=== PATIENT | male | born 1965 | race Caucasian/White ===

== ENCOUNTER 2022-03-18 17:55 | Inpatient (IN) ==
[2022-03-18] MEDS ORDERED: Propofol 10 mg/ml 100 ML BTL 1,000 MG/100 ML BTL ONE (21:47)
[2022-03-18] MEDS: Propofol 10 mg/ml 100 ML BTL 1,000 MG/100 ML BTL IV SCH ×2 (21:50→23:08)
[2022-03-18] MEDS ORDERED: Enoxaparin 40 MG/0.4 ML SYR SUBCUT SCH (22:00)
[2022-03-18] MEDS ORDERED: fentaNYL 100 mcg/2 ml 50 MCG/ML VIAL ONE (22:40)
[2022-03-18] MEDS ORDERED: Piperacillin/Tazobac ADVAN 3.375 GM in NS 0.9% 100 ml BAG 100 ML IV ONE (23:04)
[2022-03-18] MEDS ORDERED: Albuterol/Ipratropium NEB.SOL (2.5/0.5 MG) 3 ML NEB.SOLN INH PRN (23:04)
[2022-03-18] MEDS: Dexmedetomidine 1,000 MCG in NS 0.9% 250 ml 240 ML IV SCH (23:08)
[2022-03-18] MEDS: Pantoprazole VIAL 40 MG VIAL IV SCH (23:12)
[2022-03-18] MEDS: Chlorhexidine MOUTHWASH 0.12% 15 ML UDC SWISH SPIT SCH (23:12)
[2022-03-18] MEDS ORDERED: Lactated Ringers 1000 ml BAG 1,000 ML IV ONE (23:21)
[2022-03-18 23:28] LABS: ABS Basophils 0.1 10^3/ul (0-0.2); ABS Lymphocytes 0.8 10^3/ul (1.0-4.8); ABS Neutrophils 13.3 10^3/ul (1.5-7.7); Eosinophil % 0.2 %; Hematocrit 37 % (42-52); Hemoglobin 11.7 g/dL (14.0-18.0); Lymphocyte % 5.5 %; Mean Corpuscular HGB Conc 32 g/dL (31-36); Mean Corpuscular Hemoglobin 29 pg (27-31); Mean Corpuscular Volume 92 fL (80-94); Mean Platelet Volume 8.2 fL (7.4-10.4); Platelet Count 298 10^3/uL (150-450); Red Cell Distribution Width 16 % (10-15); White Blood Count 15.2 10^3/uL (3.5-10.8)
[2022-03-18 23:30] LABS: Urine Appearance Clear; Urine Bilirubin Negative (Negative); Urine Blood Negative (Negative); Urine Color Yellow; Urine Glucose Negative (Negative); Urine Ketones Negative (Negative); Urine Nitrite Negative (Negative); Urine Protein Negative (Negative); Urine Specific Gravity 1.026 (1.002-1.030); Urine Urobilinogen Negative (Negative)
[2022-03-18] MEDS ORDERED: Zosyn per Pharmacy NOTE FOLLOW UP SCH (23:45)
[2022-03-19] MEDS: DOXYcycline 100 MG in NS 0.9% 250 ml 250 ML IVPB SCH ×3 (00:03→23:45)
[2022-03-19] MEDS: methylPREDNISolone SOD SUCC 40 mg/ml 1 ml VIAL IV SCH ×4 (00:11→23:44)
[2022-03-19 00:24] LABS: Albumin 3.8 g/dL (3.2-5.2); Albumin/Globulin Ratio 1.6 (1-3); Calcium 8.1 mg/dL (8.6-10.3); Globulin 2.4 g/dL (2-4); Magnesium 2.7 mg/dL (1.9-2.7); Total Bilirubin 0.3 mg/dL (0.2-1.0); Total Protein 6.2 g/dL (6.4-8.9); eGFR CKD-EPI 81.3 (>60)
[2022-03-19 00:31] LABS: Potassium 5.2 mmol/L (3.5-5.0)
[2022-03-19 00:38] LABS: TSH Ultra Thyroid Stim Horm 0.12 mcIU/mL (0.34-5.60)
[2022-03-19 00:43] LABS: INR 0.94 (0.88-1.18)
[2022-03-19] MEDS: Propofol 10 mg/ml 100 ML BTL 1,000 MG/100 ML BTL IV SCH ×9 (00:46→23:19)
[2022-03-19 01:05] LABS: High Sensitivity Troponin 1 Hr 10 pg/mL (<20)
[2022-03-19] MEDS: Chlorhexidine MOUTHWASH 0.12% 15 ML UDC SWISH SPIT SCH ×6 (01:55→21:26)
[2022-03-19] MEDS: ZOSYN 3.375 GM Q8H per EXTENDED INFUSION IV SCH ×3 (04:26→20:39)
[2022-03-19 04:30] LABS: ABS Lymphocytes 0.9 10^3/ul (1.0-4.8); ABS Monocytes 0.6 10^3/ul (0-0.8); ABS Neutrophils 12.1 10^3/ul (1.5-7.7); Hematocrit 36 % (42-52); Hemoglobin 11.7 g/dL (14.0-18.0); Lymphocyte % 6.4 %; Mean Corpuscular HGB Conc 32 g/dL (31-36); Mean Corpuscular Hemoglobin 30 pg (27-31); Mean Corpuscular Volume 92 fL (80-94); Mean Platelet Volume 8.2 fL (7.4-10.4); Nucleated Red Blood Cells % 0.1; Platelet Count 305 10^3/uL (150-450); Red Blood Count 3.96 10^6 /uL (4.18-5.48); Red Cell Distribution Width 16 % (10-15); White Blood Count 13.6 10^3/uL (3.5-10.8)
[2022-03-19] MEDS: fentaNYL 100 mcg/2 ml 50 MCG/ML VIAL IV SLOW PU PRN ×5 (05:00→18:09)
[2022-03-19 05:30] LABS: Magnesium 2.6 mg/dL (1.9-2.7); Phosphorus 3.1 mg/dL (2.5-5.0); eGFR CKD-EPI 86.2 (>60)
[2022-03-19 05:32] LABS: Potassium 5.4 mmol/L (3.5-5.0)
[2022-03-19] MEDS ORDERED: Patiromer POWDER 8.4 GM PAK PO ONE (06:54)
[2022-03-19] MEDS ORDERED: Dexmedetomidine 200 mcg/2 ml 2 ml VIAL (200 mcg) ONE (07:34)
[2022-03-19] MEDS: Enoxaparin 40 MG/0.4 ML SYR SUBCUT SCH ×2 (08:48→20:34)
[2022-03-19] MEDS ORDERED: Furosemide 40 mg/4 ml IV VIAL IV SLOW PU ONE (08:54)
[2022-03-19] MEDS ORDERED: Valproic Acid IV 100 MG/ML 5 ML VIAL (500 MG) IVPB SCH ×2 (09:00→21:00)
[2022-03-19] MEDS ORDERED: Valproic Acid IV 1,000 MG in NS 0.9% 100 ml BAG 100 ML IVPB SCH (09:00)
[2022-03-19] MEDS: Albuterol/Ipratropium NEB.SOL (2.5/0.5 MG) 3 ML NEB.SOLN INH SCH ×5 (09:22→23:34)
[2022-03-19] MEDS: Valproic Acid IV 375 MG in NS 0.9% 100 ml BAG 100 ML IVPB SCH ×3 (10:03→20:34)
[2022-03-19] MEDS: Dexmedetomidine 1,000 MCG in NS 0.9% 250 ml 240 ML IV SCH ×2 (11:13→18:22)
[2022-03-19 12:19] LABS: PCO2 Arterial 42 mmHg (35-45); PO2 Arterial 68 mmHg (80-100)
[2022-03-19] MEDS: hydrALAZINE 20 mg/ml 1 ML Vial IV IV SLOW PU PRN ×2 (15:06→20:59)
[2022-03-19] MEDS ORDERED: Valproic Acid IV 500 MG in NS 0.9% 100 ML IVPB SCH (21:00)
[2022-03-19] MEDS: Pantoprazole VIAL 40 MG VIAL IV SCH (21:26)
[2022-03-19] MEDS ORDERED: Midazolam 2 mg/2 ml VIAL 1 mg/ml 2 ml VIAL (2 mg) ONE (21:31)
[2022-03-19] MEDS ORDERED: Midazolam 2 mg/2 ml VIAL 1 mg/ml 2 ml VIAL (2 mg) IV SLOW PU ONE (21:42)
[2022-03-20] MEDS: Chlorhexidine MOUTHWASH 0.12% 15 ML UDC SWISH SPIT SCH ×2 (01:38→05:25)
[2022-03-20] MEDS: dilTIAZem 30 MG TAB FEED TUBE SCH ×4 (01:53→19:07)
[2022-03-20] MEDS: Propofol 10 mg/ml 100 ML BTL 1,000 MG/100 ML BTL IV SCH ×3 (02:55→08:23)
[2022-03-20] MEDS ORDERED: Albuterol/Ipratropium NEB.SOL (2.5/0.5 MG) 3 ML NEB.SOLN INH SCH ×2 (03:00→13:00)
[2022-03-20] MEDS ORDERED: fentaNYL 100 mcg/2 ml 50 MCG/ML VIAL IV SLOW PU ONE (03:06)
[2022-03-20] MEDS: Valproic Acid IV 375 MG in NS 0.9% 100 ml BAG 100 ML IVPB SCH ×3 (03:08→17:11)
[2022-03-20] MEDS: Albuterol/Ipratropium NEB.SOL (2.5/0.5 MG) 3 ML NEB.SOLN INH SCH ×2 (03:26→07:43)
[2022-03-20] MEDS: ZOSYN 3.375 GM Q8H per EXTENDED INFUSION IV SCH ×3 (04:03→20:51)
[2022-03-20 04:14] LABS: ABS Lymphocytes 0.9 10^3/ul (1.0-4.8); ABS Monocytes 0.4 10^3/ul (0-0.8); ABS Neutrophils 10.7 10^3/ul (1.5-7.7); Eosinophil % 0.1 %; Hematocrit 36 % (42-52); Hemoglobin 12.3 g/dL (14.0-18.0); Lymphocyte % 7.4 %; Mean Corpuscular HGB Conc 34 g/dL (31-36); Mean Corpuscular Hemoglobin 31 pg (27-31); Mean Corpuscular Volume 91 fL (80-94); Mean Platelet Volume 8.3 fL (7.4-10.4); Platelet Count 315 10^3/uL (150-450); Red Blood Count 3.98 10^6 /uL (4.18-5.48); Red Cell Distribution Width 15 % (10-15)
[2022-03-20] MEDS: hydrALAZINE 20 mg/ml 1 ML Vial IV IV SLOW PU PRN ×2 (04:16→17:18)
[2022-03-20] MEDS: Dexmedetomidine 1,000 MCG in NS 0.9% 250 ml 240 ML IV SCH ×4 (04:18→20:23)
[2022-03-20 04:42] LABS: Magnesium 2.3 mg/dL (1.9-2.7); Phosphorus 3.3 mg/dL (2.5-5.0); Potassium 4.5 mmol/L (3.5-5.0); eGFR CKD-EPI 83.2 (>60)
[2022-03-20] MEDS ORDERED: methylPREDNISolone SOD SUCC 40 mg/ml 1 ml VIAL IV SCH ×2 (05:00→20:00)
[2022-03-20] MEDS ORDERED: Furosemide 40 mg/4 ml IV VIAL IV SLOW PU ONE (07:43)
[2022-03-20] MEDS: fentaNYL 100 mcg/2 ml 50 MCG/ML VIAL IV SLOW PU PRN (07:57)
[2022-03-20] MEDS: methylPREDNISolone SOD SUCC 40 mg/ml 1 ml VIAL IV SCH (08:21)
[2022-03-20] MEDS: Enoxaparin 40 MG/0.4 ML SYR SUBCUT SCH ×2 (08:22→20:56)
[2022-03-20] MEDS ORDERED: Lorazepam PYXIS KEY ONE ×2 (10:08→14:47)
[2022-03-20] MEDS ORDERED: LORazepam 2 mg VIAL 1 ml ONE ×2 (10:08→14:47)
[2022-03-20] MEDS ORDERED: Succinylcholine 200 mg VIAL 20 mg/ml 10 ml VIAL (200 mg) ONE (10:13)
[2022-03-20] MEDS ORDERED: Haloperidol 5 mg/ml SDV IV/IM 5 MG/ML AMP ONE ×2 (10:20→10:26)
[2022-03-20] MEDS: Haloperidol 5 mg/ml SDV IV/IM 5 MG/ML AMP IV SLOW PU PRN ×5 (10:21→22:45)
[2022-03-20] MEDS ORDERED: Ziprasidone IM 20 mg VIAL 1 ml VIAL ONE (10:26)
[2022-03-20] MEDS ORDERED: PHENobarbital IV 500 MG in NS 0.9% 100 ml BAG 100 ML IVPB ONE (10:28)
[2022-03-20] MEDS ORDERED: NS 0.9% IVPB ONE ×2 (10:46→15:00)
[2022-03-20] MEDS ORDERED: PHENOBARBITAL IVPB ONE ×2 (10:46→15:00)
[2022-03-20] MEDS ORDERED: Ziprasidone IM 20 mg VIAL 1 ml VIAL IM ONE (12:44)
[2022-03-20] MEDS ORDERED: Magnesium Sulfate 2 gm BAG 2 GM/50 ML BAG IVPB ONE ×2 (12:44→23:24)
[2022-03-20] MEDS: DOXYcycline 100 MG in NS 0.9% 250 ml 250 ML IVPB SCH ×2 (13:27→23:15)
[2022-03-20] MEDS ORDERED: Thiamine 100 MG/ML 2 ml VIAL 250 MG in NS 0.9% 100 ml BAG 100 ML IV SCH (14:00)
[2022-03-20] MEDS ORDERED: Haloperidol 5 mg/ml SDV IV/IM 5 MG/ML AMP IV SLOW PU ONE (14:36)
[2022-03-20] MEDS ORDERED: PHENobarbital IV 65 MG/ML 1 ml VIAL IVPB ONE (15:00)
[2022-03-20] MEDS ORDERED: Lorazepam PYXIS KEY PRN ×2 (15:06→23:24)
[2022-03-20] MEDS ORDERED: LORazepam 2 mg VIAL 1 ml IV PUSH ONE ×2 (15:06→23:24)
[2022-03-20 15:11] LABS: PCO2 Arterial 41 mmHg (35-45); PO2 Arterial 84 mmHg (80-100)
[2022-03-20] MEDS ORDERED: hydrALAZINE 20 mg/ml 1 ML Vial IV IV SLOW PU ONE (17:55)
[2022-03-20] MEDS ORDERED: Folic Acid IV 1 MG in NS 0.9% 50 ML 50 ML IV ONE (18:00)
[2022-03-20] MEDS ORDERED: NS 0.9% IV ONE (18:30)
[2022-03-20] MEDS ORDERED: PHENOBARBITAL IV ONE (18:30)
[2022-03-20 19:29] LABS: T4, Total 6.15 mcg/dL (6.09-12.23)
[2022-03-20 19:31] LABS: TSH Ultra Thyroid Stim Horm 0.77 mcIU/mL (0.34-5.60)
[2022-03-20 19:33] LABS: Free T3 2.4 pg/mL (2.5-3.9); Free T4 0.66 ng/dL (0.61-1.12)
[2022-03-20] MEDS: Thiamine 100 MG/ML 2 ml VIAL 500 MG in NS 0.9% 250 ml 250 ML IV SCH (21:26)
[2022-03-20 21:46] LABS: Albumin 3.8 g/dL (3.2-5.2); Albumin/Globulin Ratio 1.7 (1-3); Calcium 7.9 mg/dL (8.6-10.3); Globulin 2.2 g/dL (2-4); Potassium 4.7 mmol/L (3.5-5.0); Total Bilirubin 0.3 mg/dL (0.2-1.0); eGFR CKD-EPI 92.8 (>60)
[2022-03-20] MEDS: Albuterol 2.5mg/3 ml (0.083%) NEB.SOLN INH PRN ×2 (22:53→23:17)
[2022-03-20] MEDS ORDERED: Albuterol/Ipratropium NEB.SOL (2.5/0.5 MG) 3 ML NEB.SOLN INH ONE (23:07)
[2022-03-20 23:55] LABS: PCO2 Arterial 47 mmHg (35-45); PO2 Arterial 80 mmHg (80-100)
[2022-03-21] MEDS: Albuterol/Ipratropium NEB.SOL (2.5/0.5 MG) 3 ML NEB.SOLN INH SCH ×7 (00:26→22:49)
[2022-03-21] MEDS: Valproic Acid IV 500 MG in NS 0.9% 100 ml BAG 100 ML IVPB SCH ×4 (00:58→16:47)
[2022-03-21] MEDS: hydrALAZINE 20 mg/ml 1 ML Vial IV IV SLOW PU PRN ×3 (01:06→18:22)
[2022-03-21] MEDS: Dexmedetomidine 1,000 MCG in NS 0.9% 250 ml 240 ML IV SCH ×6 (01:07→22:43)
[2022-03-21] MEDS ORDERED: LORazepam 2 mg VIAL 1 ml ONE ×4 (03:38→20:22)
[2022-03-21] MEDS ORDERED: LORazepam 2 mg VIAL 1 ml IV PUSH ONE ×5 (03:45→21:09)
[2022-03-21] MEDS ORDERED: Lorazepam PYXIS KEY PRN ×6 (03:45→21:09)
[2022-03-21] MEDS: ZOSYN 3.375 GM Q8H per EXTENDED INFUSION IV SCH ×3 (04:13→20:01)
[2022-03-21] MEDS: Thiamine 100 MG/ML 2 ml VIAL 500 MG in NS 0.9% 250 ml 250 ML IV SCH ×2 (04:58→12:39)
[2022-03-21] MEDS: methylPREDNISolone SOD SUCC 40 mg/ml 1 ml VIAL IV SCH ×3 (05:01→20:02)
[2022-03-21 05:16] LABS: Hematocrit 35 % (42-52); Hemoglobin 11.6 g/dL (14.0-18.0); Mean Corpuscular HGB Conc 33 g/dL (31-36); Mean Corpuscular Hemoglobin 30 pg (27-31); Mean Corpuscular Volume 91 fL (80-94); Platelet Count 310 10^3/uL (150-450); Red Blood Count 3.83 10^6 /uL (4.18-5.48); Red Cell Distribution Width 16 % (10-15); White Blood Count 10.9 10^3/uL (3.5-10.8)
[2022-03-21 05:39] LABS: ABS Basophils 0.1 10^3/ul (0-0.2); ABS Lymphocytes 0.9 10^3/ul (1.0-4.8); ABS Monocytes 0.6 10^3/ul (0-0.8); ABS Neutrophils 9.3 10^3/ul (1.5-7.7); Lymphocyte % 8.3 %
[2022-03-21 05:55] LABS: Calcium 7.7 mg/dL (8.6-10.3); Magnesium 3.1 mg/dL (1.9-2.7); Phosphorus 4.1 mg/dL (2.5-5.0); Potassium 4.9 mmol/L (3.5-5.0); eGFR CKD-EPI 88.3 (>60)
[2022-03-21 06:15] LABS: Thyroid Peroxidase Antibodies 0.34 IU/mL (<9)
[2022-03-21] MEDS: Enoxaparin 40 MG/0.4 ML SYR SUBCUT SCH ×2 (08:05→20:13)
[2022-03-21] MEDS ORDERED: PHENOBARBITAL IVPB ONE ×2 (09:00)
[2022-03-21] MEDS ORDERED: NS 0.9% IVPB ONE ×2 (09:00)
[2022-03-21 10:01] LABS: PCO2 Arterial 41 mmHg (35-45); PO2 Arterial 89 mmHg (80-100)
[2022-03-21] MEDS: DOXYcycline 100 MG in NS 0.9% 250 ml 250 ML IVPB SCH ×2 (10:27→23:26)
[2022-03-21] MEDS ORDERED: Cyanocobalamin INJ 1,000 MCG/ML VIAL 1 ML VIAL IM ONE (11:01)
[2022-03-21] MEDS: Haloperidol 5 mg/ml SDV IV/IM 5 MG/ML AMP IV SLOW PU PRN ×2 (11:40→23:26)
[2022-03-21] MEDS ORDERED: Lorazepam PYXIS KEY ONE ×2 (11:44→20:21)
[2022-03-21] MEDS: Pantoprazole VIAL 40 MG VIAL IV SCH (12:31)
[2022-03-21] MEDS ORDERED: LORazepam 2 mg VIAL 1 ml IV PUSH PRN (20:19)
[2022-03-22] MEDS: Valproic Acid IV 500 MG in NS 0.9% 100 ml BAG 100 ML IVPB SCH ×5 (00:17→23:37)
[2022-03-22] MEDS ORDERED: Furosemide 40 mg/4 ml IV VIAL IV SLOW PU ONE (02:03)
[2022-03-22] MEDS: Albuterol/Ipratropium NEB.SOL (2.5/0.5 MG) 3 ML NEB.SOLN INH SCH ×6 (02:11→23:28)
[2022-03-22] MEDS ORDERED: Furosemide 40 mg/4 ml IV VIAL ONE (02:20)
[2022-03-22] MEDS ORDERED: Morphine 4 MG/ML VIAL (1 ml) ONE (02:21)
[2022-03-22 02:57] LABS: PCO2 Arterial 44 mmHg (35-45); PO2 Arterial 105 mmHg (80-100)
[2022-03-22] MEDS: Dexmedetomidine 1,000 MCG in NS 0.9% 250 ml 240 ML IV SCH ×4 (03:21→19:31)
[2022-03-22 03:25] LABS: Hematocrit 36 % (42-52); Hemoglobin 11.5 g/dL (14.0-18.0); Mean Corpuscular HGB Conc 32 g/dL (31-36); Mean Corpuscular Hemoglobin 29 pg (27-31); Mean Corpuscular Volume 92 fL (80-94); Mean Platelet Volume 8.5 fL (7.4-10.4); Platelet Count 304 10^3/uL (150-450); Red Blood Count 3.91 10^6 /uL (4.18-5.48); Red Cell Distribution Width 16 % (10-15); White Blood Count 9.5 10^3/uL (3.5-10.8)
[2022-03-22] MEDS: ZOSYN 3.375 GM Q8H per EXTENDED INFUSION IV SCH ×3 (04:15→20:20)
[2022-03-22 04:31] LABS: Blood Urea Nitrogen 37 mg/dL (6-24); CO2 Carbon Dioxide 24 mmol/L (22-32); Calcium 7.5 mg/dL (8.6-10.3); Chloride 111 mmol/L (101-111); Glucose 106 mg/dL (70-100); eGFR CKD-EPI 86.2 (>60)
[2022-03-22 04:40] LABS: Anion Gap 11 mmol/L (2-11); Sodium 146 mmol/L (135-145)
[2022-03-22] MEDS: methylPREDNISolone SOD SUCC 40 mg/ml 1 ml VIAL IV SCH ×3 (05:54→20:21)
[2022-03-22] MEDS: Thiamine 100 MG/ML 2 ml VIAL 100 MG in NS 0.9% 50 ML 50 ML IV SCH (08:33)
[2022-03-22] MEDS: Enoxaparin 40 MG/0.4 ML SYR SUBCUT SCH ×2 (08:34→20:21)
[2022-03-22] MEDS: hydrALAZINE 20 mg/ml 1 ML Vial IV IV SLOW PU PRN ×3 (08:36→23:36)
[2022-03-22] MEDS ORDERED: PHENobarbital IV 65 MG/ML 1 ml VIAL IV SCH (09:00)
[2022-03-22 09:55] LABS: Magnesium 2.6 mg/dL (1.9-2.7); Potassium 4.2 mmol/L (3.5-5.0)
[2022-03-22] MEDS ORDERED: Lorazepam PYXIS KEY PRN (11:16)
[2022-03-22] MEDS ORDERED: LORazepam 2 mg VIAL 1 ml IV PUSH ONE (11:16)
[2022-03-22] MEDS: DOXYcycline 100 MG in NS 0.9% 250 ml 250 ML IVPB SCH ×2 (11:41→23:37)
[2022-03-22] MEDS: Pantoprazole VIAL 40 MG VIAL IV SCH (13:41)
[2022-03-22] MEDS: Acetaminophen IV 1 GM/100ML 1,000 MG/100 ML BAG IV PRN (15:42)
[2022-03-22] MEDS ORDERED: PHENobarbital IV 65 MG/ML 1 ml VIAL IV ONE (21:00)
[2022-03-22] MEDS ORDERED: PHENYLEPHRINE DRIP IVPREMIX 50 MG/250 ML BAG IV ONE (21:31)
[2022-03-23] MEDS: Dexmedetomidine 1,000 MCG in NS 0.9% 250 ml 240 ML IV SCH ×3 (00:16→09:16)
[2022-03-23] MEDS: ZOSYN 3.375 GM Q8H per EXTENDED INFUSION IV SCH ×3 (03:30→20:04)
[2022-03-23 04:37] LABS: Hematocrit 33 % (42-52); Hemoglobin 10.8 g/dL (14.0-18.0); Mean Corpuscular HGB Conc 33 g/dL (31-36); Mean Corpuscular Hemoglobin 30 pg (27-31); Mean Corpuscular Volume 92 fL (80-94); Mean Platelet Volume 8.4 fL (7.4-10.4); Platelet Count 270 10^3/uL (150-450); Red Blood Count 3.62 10^6 /uL (4.18-5.48); Red Cell Distribution Width 16 % (10-15)
[2022-03-23] MEDS: Valproic Acid IV 500 MG in NS 0.9% 100 ml BAG 100 ML IVPB SCH ×2 (05:07→12:29)
[2022-03-23 05:16] LABS: ABS Basophils 0.1 10^3/ul (0-0.2); ABS Lymphocytes 2.1 10^3/ul (1.0-4.8); ABS Neutrophils 7.8 10^3/ul (1.5-7.7); Lymphocyte % 19.5 %; Nucleated Red Blood Cells % 0.1
[2022-03-23 05:27] LABS: Calcium 7.6 mg/dL (8.6-10.3); Magnesium 2.7 mg/dL (1.9-2.7); Phosphorus 3.5 mg/dL (2.5-5.0); Potassium 4.7 mmol/L (3.5-5.0); eGFR CKD-EPI 89.4 (>60)
[2022-03-23] MEDS: Albuterol/Ipratropium NEB.SOL (2.5/0.5 MG) 3 ML NEB.SOLN INH SCH ×3 (07:08→19:12)
[2022-03-23] MEDS ORDERED: methylPREDNISolone SOD SUCC 40 mg/ml 1 ml VIAL IV SCH (09:30)
[2022-03-23] MEDS: Enoxaparin 40 MG/0.4 ML SYR SUBCUT SCH ×2 (10:32→20:10)
[2022-03-23] MEDS: Thiamine 100 MG/ML 2 ml VIAL 100 MG in NS 0.9% 50 ML 50 ML IV SCH (10:32)
[2022-03-23] MEDS ORDERED: Midazolam 2 mg/2 ml VIAL 1 mg/ml 2 ml VIAL (2 mg) ONE (11:27)
[2022-03-23] MEDS ORDERED: Midazolam 2 mg/2 ml VIAL 1 mg/ml 2 ml VIAL (2 mg) IV SLOW PU ONE (11:41)
[2022-03-23] MEDS: methylPREDNISolone SOD SUCC 40 mg/ml 1 ml VIAL IV SCH (12:16)
[2022-03-23] MEDS: DOXYcycline 100 MG in NS 0.9% 250 ml 250 ML IVPB SCH ×2 (12:24→23:31)
[2022-03-23] MEDS: Pantoprazole VIAL 40 MG VIAL IV SCH (12:26)
[2022-03-23] MEDS ORDERED: PHENobarbital IV 65 MG/ML 1 ml VIAL IV SCH (13:00)
[2022-03-23] MEDS: Acetaminophen IV 1 GM/100ML 1,000 MG/100 ML BAG IV PRN (14:02)
[2022-03-23] MEDS ORDERED: Lactulose 30 ml UDC NG TUBE ONE (14:05)
[2022-03-23] MEDS: Lidocaine PATCH 5% PATCH TRANSDERM SCH (17:04)
[2022-03-23] MEDS: Valproic Acid LIQ 250 MG/5 ML UDC PO SCH (20:11)
[2022-03-24] MEDS: Albuterol/Ipratropium NEB.SOL (2.5/0.5 MG) 3 ML NEB.SOLN INH SCH ×4 (02:42→19:23)
[2022-03-24 04:26] LABS: Hematocrit 30 % (42-52); Hemoglobin 10.2 g/dL (14.0-18.0); Mean Corpuscular HGB Conc 33 g/dL (31-36); Mean Corpuscular Hemoglobin 30 pg (27-31); Mean Corpuscular Volume 91 fL (80-94); Platelet Count 205 10^3/uL (150-450); Red Blood Count 3.35 10^6 /uL (4.18-5.48); Red Cell Distribution Width 16 % (10-15); White Blood Count 10.4 10^3/uL (3.5-10.8)
[2022-03-24] MEDS: ZOSYN 3.375 GM Q8H per EXTENDED INFUSION IV SCH ×3 (04:26→20:11)
[2022-03-24 04:40] LABS: ABS Basophils 0.1 10^3/ul (0-0.2); ABS Lymphocytes 2.3 10^3/ul (1.0-4.8); Eosinophil % 0.4 %; Lymphocyte % 21.8 %; Nucleated Red Blood Cells % 0.1
[2022-03-24 05:04] LABS: Calcium 7.6 mg/dL (8.6-10.3); Magnesium 2.7 mg/dL (1.9-2.7); Potassium 4.1 mmol/L (3.5-5.0); eGFR CKD-EPI 80.4 (>60)
[2022-03-24] MEDS: Lidocaine PATCH 5% PATCH TRANSDERM SCH (08:06)
[2022-03-24] MEDS: Enoxaparin 40 MG/0.4 ML SYR SUBCUT SCH ×2 (08:06→20:45)
[2022-03-24] MEDS: Thiamine 100 MG/ML 2 ml VIAL 100 MG in NS 0.9% 50 ML 50 ML IV SCH (08:07)
[2022-03-24] MEDS: Valproic Acid LIQ 250 MG/5 ML UDC PO SCH (08:07)
[2022-03-24] MEDS ORDERED: Bumetanide IV 10 MG in Premix IV 0 ML IV SCH (09:00)
[2022-03-24] MEDS: Cyanocobalamin INJ 1,000 MCG/ML VIAL 1 ML VIAL IM SCH (10:37)
[2022-03-24] MEDS: DOXYcycline 100 MG in NS 0.9% 250 ml 250 ML IVPB SCH (12:04)
[2022-03-24] MEDS: Pantoprazole VIAL 40 MG VIAL IV SCH (12:10)
[2022-03-24] MEDS: Nystatin SUSPENSION 100,000 UNITS/ML UDC PO SCH ×3 (12:10→20:45)
[2022-03-24] MEDS: Acetaminophen IV 1 GM/100ML 1,000 MG/100 ML BAG IV PRN (18:42)
[2022-03-25] MEDS: Albuterol/Ipratropium NEB.SOL (2.5/0.5 MG) 3 ML NEB.SOLN INH SCH (00:07)
[2022-03-25] MEDS: DOXYcycline 100 MG in NS 0.9% 250 ml 250 ML IVPB SCH ×2 (00:32→11:44)
[2022-03-25] MEDS: ZOSYN 3.375 GM Q8H per EXTENDED INFUSION IV SCH ×3 (04:12→20:08)
[2022-03-25] MEDS: Thiamine 100 MG/ML 2 ml VIAL 100 MG in NS 0.9% 50 ML 50 ML IV SCH (10:14)
[2022-03-25] MEDS: Nystatin SUSPENSION 100,000 UNITS/ML UDC PO SCH ×3 (10:14→21:19)
[2022-03-25] MEDS: Pantoprazole VIAL 40 MG VIAL IV SCH (10:15)
[2022-03-25] MEDS: Cyanocobalamin INJ 1,000 MCG/ML VIAL 1 ML VIAL IM SCH (10:16)
[2022-03-25] MEDS: Enoxaparin 40 MG/0.4 ML SYR SUBCUT SCH ×2 (10:16→21:19)
[2022-03-25] MEDS: Lidocaine PATCH 5% PATCH TRANSDERM SCH (10:16)
[2022-03-25] MEDS ORDERED: Thiamine 100 MG/ML 2 ml VIAL 250 MG in NS 0.9% 100 ml BAG 100 ML IV SCH (14:00)
[2022-03-25] MEDS: Albuterol 2.5mg/3 ml (0.083%) NEB.SOLN INH PRN (20:57)
[2022-03-26] MEDS: ZOSYN 3.375 GM Q8H per EXTENDED INFUSION IV SCH (03:50)
[2022-03-26 06:34] LABS: Hematocrit 33 % (42-52); Hemoglobin 10.7 g/dL (14.0-18.0); Mean Corpuscular HGB Conc 32 g/dL (31-36); Mean Corpuscular Hemoglobin 31 pg (27-31); Mean Corpuscular Volume 95 fL (80-94); Mean Platelet Volume 8.8 fL (7.4-10.4); Platelet Count 207 10^3/uL (150-450); Red Cell Distribution Width 16 % (10-15); White Blood Count 9.3 10^3/uL (3.5-10.8)
[2022-03-26 06:56] LABS: Calcium 8.9 mg/dL (8.6-10.3); Magnesium 2.2 mg/dL (1.9-2.7); Phosphorus 5.3 mg/dL (2.5-5.0); Potassium 4.4 mmol/L (3.5-5.0); eGFR CKD-EPI 88.3 (>60)
[2022-03-26 07:07] LABS: ABS Eosinophils 0.1 10^3/ul (0-0.6); ABS Lymphocytes 2.7 10^3/ul (1.0-4.8); ABS Neutrophils 5.6 10^3/ul (1.5-7.7); Eosinophil % 0.7 %; Lymphocyte % 28.9 %; Nucleated Red Blood Cells % 0.1
[2022-03-26] MEDS: Cyanocobalamin INJ 1,000 MCG/ML VIAL 1 ML VIAL IM SCH (09:38)
[2022-03-26] MEDS: Nystatin SUSPENSION 100,000 UNITS/ML UDC PO SCH (09:39)
[2022-03-26] MEDS: Lidocaine PATCH 5% PATCH TRANSDERM SCH (09:39)
[2022-03-26] MEDS: Enoxaparin 40 MG/0.4 ML SYR SUBCUT SCH (09:41)
[2022-03-26 11:26] VITALS: BP 123/61
[2022-03-26] MEDS: Pantoprazole VIAL 40 MG VIAL IV SCH (11:42)
[2022-03-26] MEDS: Thiamine 100 MG/ML 2 ml VIAL 100 MG in NS 0.9% 50 ML 50 ML IV SCH (11:49)
== END 2022-03-26 14:25 | DRG 133 ==
LOC: ICU 21:44 → SUATTDRO 22:00 → SSU 03-24 13:32
PROVIDERS: ADMIT Internal Medicine; ATTEND Internal Medicine Hematology & Oncology

== ENCOUNTER 2022-03-26 12:09 | Inpatient (IN) ==
[2022-03-26] MEDS ORDERED: Magnesium Hydroxide LIQ 30 ML UDC PO PRN (12:13)
[2022-03-26] MEDS ORDERED: Al Hydrox/Mg Hydrox/Simet LIQ 30 ML UDC PO PRN (12:13)
[2022-03-26] MEDS ORDERED: Senna TAB 8.6 mg TAB PO PRN (12:13)
[2022-03-26] MEDS ORDERED: Albuterol 2.5mg/3 ml (0.083%) NEB.SOLN INH PRN (12:29)
[2022-03-26] MEDS ORDERED: Nystatin SUSPENSION 100,000 UNITS/ML UDC PO SCH (13:00)
[2022-03-26 19:56] LABS: PCO2 Arterial 46 mmHg (35-45); PO2 Arterial 67 mmHg (80-100)
[2022-03-26 20:14] LABS: Hematocrit 32 % (42-52); Hemoglobin 10.5 g/dL (14.0-18.0); Mean Corpuscular HGB Conc 33 g/dL (31-36); Mean Corpuscular Hemoglobin 31 pg (27-31); Mean Corpuscular Volume 94 fL (80-94); Mean Platelet Volume 9.3 fL (7.4-10.4); Platelet Count 231 10^3/uL (150-450); Red Blood Count 3.41 10^6 /uL (4.18-5.48); Red Cell Distribution Width 16 % (10-15); White Blood Count 10.8 10^3/uL (3.5-10.8)
[2022-03-26 20:44] LABS: ABS Lymphocytes 1.8 10^3/ul (1.0-4.8); ABS Monocytes 0.9 10^3/ul (0-0.8); Eosinophil % 0.1 %; Lymphocyte % 16.3 %
[2022-03-26 20:54] VITALS: BP 123/72
[2022-03-26 20:57] LABS: Albumin 3.6 g/dL (3.2-5.2); Albumin/Globulin Ratio 1.7 (1-3); Calcium 8.7 mg/dL (8.6-10.3); Globulin 2.1 g/dL (2-4); Magnesium 1.9 mg/dL (1.9-2.7); Phosphorus 4.1 mg/dL (2.5-5.0); Total Bilirubin 0.3 mg/dL (0.2-1.0); Total Protein 5.7 g/dL (6.4-8.9); eGFR CKD-EPI 91.6 (>60)
[2022-03-26] MEDS ORDERED: Enoxaparin 40 MG/0.4 ML SYR SUBCUT SCH (21:00)
[2022-03-26 21:02] LABS: Potassium 5.3 mmol/L (3.5-5.0)
[2022-03-27] MEDS ORDERED: Lidocaine PATCH 5% PATCH TRANSDERM SCH (09:00)
[2022-03-27] MEDS ORDERED: Cyanocobalamin INJ 1,000 MCG/ML VIAL 1 ML VIAL IM SCH (09:00)
[2022-03-29 18:54] LABS: Free Valproic Acid 13 mcg/mL (5 - 25); Total Valproic Acid 48 mcg/mL (50 - 125)
== END 2022-03-26 19:20 | disposition short-term general hospital (02) | DRG 133 ==
LOC: PMRU 15:11
PROVIDERS: ADMIT Physical Medicine & Rehabilitation; ATTEND Physical Medicine & Rehabilitation

== ENCOUNTER 2022-03-26 20:56 | Inpatient (IN) ==
[2022-03-26] MEDS ORDERED: Ondansetron 4 mg VIAL 2 MG/ML 2 ml VIAL IV PRN (20:59)
[2022-03-26] MEDS ORDERED: Aspirin EC 325 mg TAB.EC PO ONE (20:59)
[2022-03-26] MEDS ORDERED: Enoxaparin 40 MG/0.4 ML SYR SUBCUT SCH (21:00)
[2022-03-26] MEDS ORDERED: Valproic Acid IV 1,000 MG in NS 0.9% 100 ml BAG 100 ML IVPB ONE (21:10)
[2022-03-26] MEDS ORDERED: Albuterol 2.5mg/3 ml (0.083%) NEB.SOLN INH PRN (21:15)
[2022-03-26] MEDS ORDERED: SODIUM ZIRCONIUM CYCLOSILICATE 10 GM PACKET PO ONE (21:33)
[2022-03-26] MEDS: Enoxaparin 40 MG/0.4 ML SYR SUBCUT SCH (22:21)
[2022-03-26] MEDS: Valproic Acid IV 500 MG in NS 0.9% 100 ML IVPB SCH (22:45)
[2022-03-27] MEDS: Valproic Acid IV 500 MG in NS 0.9% 100 ML IVPB SCH ×3 (04:06→16:01)
[2022-03-27 07:28] LABS: Hematocrit 32 % (42-52); Hemoglobin 10.1 g/dL (14.0-18.0); Mean Corpuscular HGB Conc 32 g/dL (31-36); Mean Corpuscular Hemoglobin 30 pg (27-31); Mean Corpuscular Volume 94 fL (80-94); Mean Platelet Volume 9.1 fL (7.4-10.4); Platelet Count 209 10^3/uL (150-450); Red Blood Count 3.36 10^6 /uL (4.18-5.48); Red Cell Distribution Width 16 % (10-15); White Blood Count 9.2 10^3/uL (3.5-10.8)
[2022-03-27 07:53] LABS: Calcium 8.1 mg/dL (8.6-10.3); HDL Cholesterol 31.5 mg/dL; Magnesium 1.9 mg/dL (1.9-2.7); Potassium 4.5 mmol/L (3.5-5.0); eGFR CKD-EPI 102.6 (>60)
[2022-03-27] MEDS: CMCS: FLUTICAS/UMECLI/VILANT 100-62.5-25 MDI (NF) INH SCH (07:54)
[2022-03-27] MEDS ORDERED: Valproic Acid IV 1,000 MG in NS 0.9% 100 ml BAG 100 ML IVPB ONE (09:00)
[2022-03-27] MEDS ORDERED: Gabapentin 600 mg TAB (NF) PO SCH (09:00)
[2022-03-27] MEDS: Cyanocobalamin INJ 1,000 MCG/ML VIAL 1 ML VIAL IM SCH (09:06)
[2022-03-27] MEDS: Aspirin EC 81 mg TAB.EC (enteric coated) PO SCH (09:06)
[2022-03-27] MEDS: Lidocaine PATCH 5% PATCH TRANSDERM SCH (09:07)
[2022-03-27] MEDS: Enoxaparin 40 MG/0.4 ML SYR SUBCUT SCH ×2 (09:07→21:15)
[2022-03-27 10:16] LABS: ABS Eosinophils 0.1 10^3/ul (0-0.6); ABS Lymphocytes 3.4 10^3/ul (1.0-4.8); ABS Monocytes 0.8 10^3/ul (0-0.8); ABS Neutrophils 4.8 10^3/ul (1.5-7.7); Eosinophil % 0.8 %; Lymphocyte % 36.9 %
[2022-03-28] MEDS: CMCS: FLUTICAS/UMECLI/VILANT 100-62.5-25 MDI (NF) INH SCH (07:30)
[2022-03-28] MEDS: Lidocaine PATCH 5% PATCH TRANSDERM SCH (10:06)
[2022-03-28] MEDS: Aspirin EC 81 mg TAB.EC (enteric coated) PO SCH (10:09)
[2022-03-28] MEDS: Cyanocobalamin INJ 1,000 MCG/ML VIAL 1 ML VIAL IM SCH (10:11)
[2022-03-28] MEDS: Enoxaparin 40 MG/0.4 ML SYR SUBCUT SCH ×2 (10:13→20:15)
[2022-03-29 05:19] LABS: Hematocrit 28 % (42-52); Hemoglobin 9.1 g/dL (14.0-18.0); Mean Corpuscular HGB Conc 33 g/dL (31-36); Mean Corpuscular Hemoglobin 30 pg (27-31); Mean Corpuscular Volume 91 fL (80-94); Mean Platelet Volume 8.3 fL (7.4-10.4); Platelet Count 203 10^3/uL (150-450); Red Blood Count 3.04 10^6 /uL (4.18-5.48); Red Cell Distribution Width 15 % (10-15); White Blood Count 12.5 10^3/uL (3.5-10.8)
[2022-03-29 05:47] LABS: ABS Basophils 0.1 10^3/ul (0-0.2); ABS Eosinophils 0.1 10^3/ul (0-0.6); ABS Lymphocytes 3.2 10^3/ul (1.0-4.8); ABS Monocytes 1.3 10^3/ul (0-0.8); ABS Neutrophils 7.9 10^3/ul (1.5-7.7); Eosinophil % 0.4 %; Lymphocyte % 25.7 %
[2022-03-29 05:48] LABS: Calcium 8.4 mg/dL (8.6-10.3); Magnesium 1.6 mg/dL (1.9-2.7); Phosphorus 3.5 mg/dL (2.5-5.0); Potassium 4.3 mmol/L (3.5-5.0); eGFR CKD-EPI 101.8 (>60)
[2022-03-29] MEDS ORDERED: Magnesium Sulf 4 GM/100 ML IV 4,000 MG/100 ML BAG IVPB ONE (07:22)
[2022-03-29] MEDS: CMCS: FLUTICAS/UMECLI/VILANT 100-62.5-25 MDI (NF) INH SCH (07:24)
[2022-03-29] MEDS: Aspirin EC 81 mg TAB.EC (enteric coated) PO SCH (09:05)
[2022-03-29] MEDS: Lidocaine PATCH 5% PATCH TRANSDERM SCH (09:06)
[2022-03-29] MEDS: Cyanocobalamin INJ 1,000 MCG/ML VIAL 1 ML VIAL IM SCH (09:10)
[2022-03-29] MEDS: Enoxaparin 40 MG/0.4 ML SYR SUBCUT SCH ×2 (09:16→21:30)
[2022-03-29] MEDS: Furosemide 40 mg/4 ml IV VIAL IV SLOW PU SCH (17:00)
[2022-03-29 18:23] LABS: Hematocrit 33 % (42-52); Hemoglobin 10.8 g/dL (14.0-18.0)
[2022-03-30 06:06] LABS: Hematocrit 28 % (42-52); Hemoglobin 9.3 g/dL (14.0-18.0); Mean Corpuscular HGB Conc 33 g/dL (31-36); Mean Corpuscular Hemoglobin 30 pg (27-31); Mean Corpuscular Volume 91 fL (80-94); Mean Platelet Volume 9.1 fL (7.4-10.4); Platelet Count 197 10^3/uL (150-450); Red Blood Count 3.07 10^6 /uL (4.18-5.48); Red Cell Distribution Width 15 % (10-15)
[2022-03-30 06:31] LABS: Albumin 3.3 g/dL (3.2-5.2); Albumin/Globulin Ratio 1.9 (1-3); Calcium 8.5 mg/dL (8.6-10.3); Globulin 1.7 g/dL (2-4); Magnesium 1.9 mg/dL (1.9-2.7); Potassium 4.5 mmol/L (3.5-5.0); Total Bilirubin 0.2 mg/dL (0.2-1.0); eGFR CKD-EPI 101.4 (>60)
[2022-03-30 06:41] LABS: ABS Eosinophils 0.1 10^3/ul (0-0.6); ABS Lymphocytes 3.3 10^3/ul (1.0-4.8); ABS Monocytes 1.3 10^3/ul (0-0.8); ABS Neutrophils 8.4 10^3/ul (1.5-7.7); Eosinophil % 0.4 %
[2022-03-30] MEDS: CMCS: FLUTICAS/UMECLI/VILANT 100-62.5-25 MDI (NF) INH SCH (07:23)
[2022-03-30] MEDS ORDERED: Lidocaine PATCH 5% PATCH TRANSDERM SCH (09:00)
[2022-03-30] MEDS: Furosemide 40 mg/4 ml IV VIAL IV SLOW PU SCH (09:46)
[2022-03-30] MEDS: Cyanocobalamin INJ 1,000 MCG/ML VIAL 1 ML VIAL IM SCH (09:48)
[2022-03-30] MEDS: Enoxaparin 40 MG/0.4 ML SYR SUBCUT SCH ×2 (09:49→20:20)
[2022-03-30] MEDS: Aspirin EC 81 mg TAB.EC (enteric coated) PO SCH (09:51)
[2022-03-30] MEDS: Lidocaine PATCH 5% PATCH TRANSDERM SCH (09:52)
[2022-03-31] MEDS: CMCS: FLUTICAS/UMECLI/VILANT 100-62.5-25 MDI (NF) INH SCH (07:17)
[2022-03-31] MEDS: Lidocaine PATCH 5% PATCH TRANSDERM SCH (08:43)
[2022-03-31] MEDS: Furosemide 40 mg/4 ml IV VIAL IV SLOW PU SCH (08:45)
[2022-03-31] MEDS: Enoxaparin 40 MG/0.4 ML SYR SUBCUT SCH (08:45)
[2022-03-31] MEDS: Cyanocobalamin INJ 1,000 MCG/ML VIAL 1 ML VIAL IM SCH (08:46)
[2022-03-31] MEDS: Aspirin EC 81 mg TAB.EC (enteric coated) PO SCH (08:47)
[2022-03-31 11:48] VITALS: BP 128/77
== END 2022-03-31 15:00 | DRG 53 ==
LOC: MEDTELE → SUATTDRO 20:59 → PREINTOOBSV 21:18
PROVIDERS: ADMIT Internal Medicine; ATTEND Internal Medicine

== ENCOUNTER 2022-03-31 15:20 | Inpatient (IN) ==
[2022-03-31] MEDS ORDERED: Senna TAB 8.6 mg TAB PO PRN (16:56)
[2022-03-31] MEDS ORDERED: Magnesium Hydroxide LIQ 30 ML UDC PO PRN (16:56)
[2022-04-01] MEDS: Aspirin EC 81 mg TAB.EC (enteric coated) PO SCH (08:41)
[2022-04-01] MEDS: Enoxaparin 40 MG/0.4 ML SYR SUBCUT SCH (08:43)
[2022-04-01] MEDS: FLUTICAS/UMECLI/VILANT 100-62.5-25 MDI (NF) INH SCH (10:35)
[2022-04-02] MEDS: Enoxaparin 40 MG/0.4 ML SYR SUBCUT SCH (07:21)
[2022-04-02] MEDS: FLUTICAS/UMECLI/VILANT 100-62.5-25 MDI (NF) INH SCH (07:23)
[2022-04-02] MEDS: Aspirin EC 81 mg TAB.EC (enteric coated) PO SCH (07:25)
[2022-04-02 10:38] LABS: Hematocrit 31 % (42-52); Hemoglobin 10.3 g/dL (14.0-18.0); Mean Corpuscular HGB Conc 33 g/dL (31-36); Mean Corpuscular Hemoglobin 31 pg (27-31); Mean Corpuscular Volume 93 fL (80-94); Platelet Count 243 10^3/uL (150-450); Red Blood Count 3.36 10^6 /uL (4.18-5.48); Red Cell Distribution Width 15 % (10-15); White Blood Count 12.5 10^3/uL (3.5-10.8)
[2022-04-02 10:48] LABS: ALT 23 U/L (7-52); Albumin 3.7 g/dL (3.2-5.2); Albumin/Globulin Ratio 1.8 (1-3); Alkaline Phosphatase 31 U/L (35-149); Blood Urea Nitrogen 18 mg/dL (6-24); CO2 Carbon Dioxide 33 mmol/L (22-32); Calcium 8.7 mg/dL (8.6-10.3); Chloride 100 mmol/L (101-111); Creatinine, Serum 1.06 mg/dL (0.67-1.17); Globulin 2.1 g/dL (2-4); Glucose 101 mg/dL (70-100); Sodium 137 mmol/L (135-145); Total Protein 5.8 g/dL (6.4-8.9); eGFR CKD-EPI 81.3 (>60)
[2022-04-02 10:53] LABS: Anion Gap 4 mmol/L (2-11)
[2022-04-02 11:17] LABS: RBC Morphology Normal (Normal)
[2022-04-02 11:18] LABS: ABS Basophils 0.1 10^3/ul (0-0.2); ABS Eosinophils 0.1 10^3/ul (0-0.6); ABS Lymphocytes 1.4 10^3/ul (1.0-4.8); ABS Monocytes 1.3 10^3/ul (0-0.8); ABS Neutrophils 9.6 10^3/ul (1.5-7.7); Eosinophil % 0.7 %; Lymphocyte % 11.5 %
[2022-04-02 11:23] LABS: Potassium Redraw 5.1 mmol/L (3.5-5.0)
[2022-04-03] MEDS: Aspirin EC 81 mg TAB.EC (enteric coated) PO SCH (08:10)
[2022-04-03] MEDS: FLUTICAS/UMECLI/VILANT 100-62.5-25 MDI (NF) INH SCH (08:12)
[2022-04-03] MEDS: Lidocaine PATCH 5% PATCH TRANSDERM SCH (08:13)
[2022-04-03] MEDS: Enoxaparin 40 MG/0.4 ML SYR SUBCUT SCH (08:14)
[2022-04-04] MEDS: Aspirin EC 81 mg TAB.EC (enteric coated) PO SCH (09:07)
[2022-04-04] MEDS: FLUTICAS/UMECLI/VILANT 100-62.5-25 MDI (NF) INH SCH (09:08)
[2022-04-04] MEDS: Enoxaparin 40 MG/0.4 ML SYR SUBCUT SCH (09:12)
[2022-04-04] MEDS: Lidocaine PATCH 5% PATCH TRANSDERM SCH (11:05)
[2022-04-04] MEDS: Albuterol/Ipratropium NEB.SOL (2.5/0.5 MG) 3 ML NEB.SOLN INH PRN (19:34)
[2022-04-05] MEDS: FLUTICAS/UMECLI/VILANT 100-62.5-25 MDI (NF) INH SCH (07:36)
[2022-04-05] MEDS: Enoxaparin 40 MG/0.4 ML SYR SUBCUT SCH (07:37)
[2022-04-05] MEDS: Aspirin EC 81 mg TAB.EC (enteric coated) PO SCH (07:39)
[2022-04-05] MEDS: Lidocaine PATCH 5% PATCH TRANSDERM SCH (08:45)
[2022-04-06] MEDS: FLUTICAS/UMECLI/VILANT 100-62.5-25 MDI (NF) INH SCH (07:22)
[2022-04-06] MEDS: Aspirin EC 81 mg TAB.EC (enteric coated) PO SCH (09:05)
[2022-04-06] MEDS: Lidocaine PATCH 5% PATCH TRANSDERM SCH (09:07)
[2022-04-06] MEDS: Enoxaparin 40 MG/0.4 ML SYR SUBCUT SCH (09:07)
[2022-04-06] MEDS: Albuterol/Ipratropium NEB.SOL (2.5/0.5 MG) 3 ML NEB.SOLN INH PRN (22:18)
[2022-04-07 07:10] LABS: Albumin 3.6 g/dL (3.2-5.2); Calcium 8.4 mg/dL (8.6-10.3); Creatinine, Serum 1.03 mg/dL (0.67-1.17); Globulin 1.8 g/dL (2-4); Potassium 4.4 mmol/L (3.5-5.0); Total Bilirubin 0.2 mg/dL (0.2-1.0); Total Protein 5.4 g/dL (6.4-8.9); eGFR CKD-EPI 84.2 (>60)
[2022-04-07] MEDS ORDERED: Lactulose 30 ml UDC PO ONE (09:53)
[2022-04-07] MEDS: Lidocaine PATCH 5% PATCH TRANSDERM SCH (10:35)
[2022-04-07] MEDS: Enoxaparin 40 MG/0.4 ML SYR SUBCUT SCH (10:36)
[2022-04-07] MEDS: Aspirin EC 81 mg TAB.EC (enteric coated) PO SCH (10:39)
[2022-04-07] MEDS: FLUTICAS/UMECLI/VILANT 100-62.5-25 MDI (NF) INH SCH (10:46)
[2022-04-08] MEDS: Enoxaparin 40 MG/0.4 ML SYR SUBCUT SCH (07:37)
[2022-04-08] MEDS: FLUTICAS/UMECLI/VILANT 100-62.5-25 MDI (NF) INH SCH (07:39)
[2022-04-08] MEDS: Aspirin EC 81 mg TAB.EC (enteric coated) PO SCH (07:40)
[2022-04-08] MEDS: Lidocaine PATCH 5% PATCH TRANSDERM SCH (08:17)
[2022-04-09 04:43] VITALS: BP 120/78
[2022-04-09 06:29] LABS: ABS Eosinophils 0.2 10^3/ul (0-0.6); ABS Lymphocytes 1.9 10^3/ul (1.0-4.8); ABS Monocytes 0.9 10^3/ul (0-0.8); ABS Neutrophils 4.7 10^3/ul (1.5-7.7); Eosinophil % 2.2 %; Hematocrit 29 % (42-52); Hemoglobin 9.5 g/dL (14.0-18.0); Mean Corpuscular HGB Conc 33 g/dL (31-36); Mean Corpuscular Hemoglobin 31 pg (27-31); Mean Corpuscular Volume 93 fL (80-94); Mean Platelet Volume 7.9 fL (7.4-10.4); Platelet Count 258 10^3/uL (150-450); Red Blood Count 3.11 10^6 /uL (4.18-5.48); Red Cell Distribution Width 16 % (10-15); White Blood Count 7.7 10^3/uL (3.5-10.8)
[2022-04-09 06:59] LABS: Albumin 3.6 g/dL (3.2-5.2); Albumin/Globulin Ratio 1.9 (1-3); Calcium 8.4 mg/dL (8.6-10.3); Globulin 1.9 g/dL (2-4); Potassium 4.5 mmol/L (3.5-5.0); Total Bilirubin 0.2 mg/dL (0.2-1.0); Total Protein 5.5 g/dL (6.4-8.9); eGFR CKD-EPI 87.2 (>60)
[2022-04-09] MEDS: Aspirin EC 81 mg TAB.EC (enteric coated) PO SCH (08:36)
[2022-04-09] MEDS: Enoxaparin 40 MG/0.4 ML SYR SUBCUT SCH (08:37)
[2022-04-09] MEDS: FLUTICAS/UMECLI/VILANT 100-62.5-25 MDI (NF) INH SCH (08:37)
[2022-04-09] MEDS: Lidocaine PATCH 5% PATCH TRANSDERM SCH (08:38)
== END 2022-04-09 14:00 | disposition home or self-care (01) | DRG 52 ==
LOC: PMRU 15:20
PROVIDERS: ADMIT Physical Medicine & Rehabilitation; ATTEND Physical Medicine & Rehabilitation